=== PATIENT | female | born 1935 | race Caucasian/White ===

== ENCOUNTER → 2019-10-20 | Outpatient (CLI) | payer MEDICARE ==
--- NOTE | 2019-10-20 15:21 | CT ---
EXAMINATION TYPE: CT ChestAbdPelvis w con DATE OF EXAM: 10/20/2019 COMPARISON: None HISTORY: 84-year-old female Post menopausal bleeding. TECHNIQUE: Contiguous axial scanning of the chest, abdomen, and pelvis performed with IV Contrast, pa tient injected with 80ml mL of Isovue 300. Delayed images through the kidneys were obtained. Coronal/ sagittal reconstructions performed. CT DLP: 469.2 mGycm Automated exposure control for dose reduction was used. FINDINGS: CHEST: Exaggerated kyphosis resulting in increased AP chest dimension. Heart mildly enlarged without pericardial effusion. Scattered mild coronary artery calcifications are present. Moderate atherosclerotic arch calcifications with conventional arch vessel branching anatomy. No thoracic lymphadenopathy by CT size criteria. Mild centrilobular emphysema. Strandy atelectasis at the lung bases. Indeterminate 7 mm posterior right basilar pulmonary nodule, axial image 39. A couple adjacent 4 mm superior to superior segment right lower lobe pulmonary nodules, axial image 2 3 and coronal image 54. No consolidation or pleural effusion. ABDOMEN: Large hiatal hernia containing the entire stomach within the lower right chest. Breathing motion artifact. No focal liver lesion seen. No biliary ductal dilatation. Portal venous sy stem is patent. Some surgical clips along the right mid abdominal omentum. Small 5 mm gallstone. No abnormal gallbladder distention. Breathing motion artifacts. Within this limitation, adrenal glands, spleen, and pancreas show no scott s abnormal body. Right kidney appears satisfactory. There is severe hydronephrosis on the left with delayed excretion of contrast from the left kidney. C orresponding left-sided hydroureter. Moderate atherosclerotic calcifications infrarenal abdominal aorta and iliac arteries. No dilated small bowel, free fluid, or free air. No mesenteric or retroperitoneal lymphadenopathy identified. The distal half of the left transverse colon is also contained within the hiatal hernia at the left b ase. No obstructive changes. No pericolonic inflammatory change. PELVIS: Bladder is urine distended. Abnormal soft tissue tissue in the expected location of the uterus and cervix contiguous with the pos terior midline and left paramedian bladder wall with irregular exophytic soft tissue extension into t he posterior bladder lumen. There is abnormal soft tissue nodularity within the cul-de-sac and also w ithin the left adnexa. The distal left ureter appears encased. Soft tissue density measures approximately 9.1 cm wide by 8.1 cm AP by 11.5 cm craniocaudal. Multiple surgical clips within the bilateral pelvic sidewalls. Mild presacral edema. Some of the dist al ileum is low hanging into the right adnexa and becomes partially obscured by the adjacent soft tis levar abnormality. BONES: Osteopenia. Degenerative changes at the hips and SI joints. Degenerative changes of the shoulders. Mo derate to advanced degenerative disc disease mid to lower thoracic spine. Grade 1 retrolisthesis at T 11-T12 and T12-L1, and L1-L2. Grade 1 anterolisthesis at L3-L4 and L4-L5. IMPRESSION: 1. LARGE IRREGULAR MASS CENTERED IN THE EXPECTED REGION OF THE UTERUS AND CERVIX EXTENDING INTO THE C UL-DE-SAC AND LEFT ADNEXA. THERE IS INVASION OF THE POSTERIOR BLADDER WALL WITH IRREGULAR SOFT TISSUE EXTENDING INTO THE POSTERIOR BLADDER LUMEN. MASS MEASURES UP TO 11.5 X 9.1 X 8.1 CM. 2. ADDITIONAL ENCASEMENT OF THE DISTAL LEFT URETER WITH SEVERE LEFT HYDRONEPHROSIS. POSSIBLE DIRECT E XTENSION TO INVOLVE PORTIONS OF THE DISTAL ILEUM/SEROSAL DISEASE WITHIN THE RIGHT SIDE OF THE PELVIS. 3. THREE INDETERMINATE RIGHT MID AND LOWER LUNG PULMONARY NODULES MEASURING 7 MM AND 4 MM. METASTATIC DISEASE NOT EXCLUDED AT THIS TIME. IF THERE ARE ANY OUTSIDE PRIORS, COMPARISON CAN BE MADE TO ASSESS FOR STABILITY. 4. SURGICAL CLIPS ALONG THE BILATERAL PELVIC SIDEWALLS AND ALSO IN THE REGION OF THE RIGHT MID ABDOMI NAL OMENTUM. CORRELATE WITH PATIENT'S SURGICAL HISTORY. 5. INCIDENTAL: CHOLELITHIASIS AND LARGE HIATAL HERNIA CONTAINING THE ENTIRE STOMACH AND THE DISTAL DEAN LF OF THE TRANSVERSE COLON. COPD WITH MILD EMPHYSEMA.
== END | disposition home or self-care (01) ==
LOC: RADCTMAIN 12:27
PROVIDERS: ATTEND Obstetrics & Gynecology
DX: R93.89 Abnormal findings on diagnostic imaging of other specified body structures (principal); N13.30 Unspecified hydronephrosis; J43.9 Emphysema, unspecified; N95.0 Postmenopausal bleeding
CPT/HCPCS: 82565; 84520; 71260; 74177; 36415; Q9967